=== PATIENT | female | born 1955 | race Caucasian/White ===

== ENCOUNTER → 2016-11-16 | Outpatient (CLI) | payer OTHER ==
[~2016-11-16] MED LIST: ALPR1TAB2 PO; ASPI81TA21 PO; CIPR-255 PO; COEN150C PO; FLUT0.0529; GLCSC500400 PO; LOSA50TA6 PO; MULTTAB PO; OMEG12006 PO; OMEP20CA59 PO; SIMV10TA2 PO; SUMA50TA15 PO; ZNTT/150 PO
[2016-11-16 17:56] LABS: URINE APPEARANCE CLEAR (CLEAR); URINE BILIRUBIN NEG (NEG); URINE COLOR YELLOW; URINE NITRITE NEG (NEG); URINE PH 5.5 (4.5-7.5); URINE SPECIFIC GRAVITY 1.001 (1.000-1.030); UROBILINOGEN NEG (NEG)
[2016-11-16 17:57] LABS: MANUAL MICROSCOPIC REQUIRED? NO; REVIEW REQ? NO
== END | disposition home or self-care (01) ==
LOC: C.LABSPEC 16:57
PROVIDERS: ATTEND Internal Medicine
DX: R30.0 Dysuria (principal)

== ENCOUNTER → 2017-01-08 | Outpatient (CLI) | payer OTHER ==
[2017-01-08 12:07] LABS: BASO % 0.2 %; BASO ABS # 0.01 K/uL (0-0.2); COMPLETE YES; EOS % 3.6 %; HEMATOCRIT 39.7 % (37-47); LYMPH % 46.7 %; LYMPH ABS # 2.75 K/uL (1.2-3.4); MEAN CELL VOLUME 97.8 fL (80-100); MEAN CORPUSCULAR HEMOGLOBIN 33.3 pg (25-34); MEAN PLATELET VOLUME 11.2 fL (7.4-10.4); MONO % 8.7 %; NEUT % 40.8 %; PLATELET COUNT 173 K/uL (130-400); RED BLOOD COUNT 4.06 M/uL (4.2-5.4); WHITE BLOOD COUNT 5.89 K/uL (4.8-10.8)
[2017-01-08 12:31] LABS: ESTIMATED AVERAGE GLUCOSE 105 mg/dl; HA1C FLAG Normal (Normal)
[2017-01-08 13:02] LABS: ALT/SGPT 25 U/L (12-78); AST/SGOT 22 U/L (15-37); BLOOD UREA NITROGEN 20 mg/dl (7-18); BUN/CREATININE RATIO 20.8 (10-20); CALCIUM 8.9 mg/dl (8.5-10.1); CARBON DIOXIDE 27 mmol/L (21-32); CHLORIDE 106 mmol/L (98-107); CREATININE 0.95 mg/dl (0.60-1.20); GLUCOSE 103 mg/dl (70-99); POTASSIUM 3.9 mmol/L (3.5-5.1); SODIUM 142 mmol/L (136-145)
[2017-01-08 13:13] LABS: ALKALINE PHOSPHATASE 100 U/L (45-117); CHOLESTEROL 179 mg/dl (0-200); CHOLESTEROL/HDL RATIO 4.8; HDL CHOLESTEROL 37 mg/dl; LDL CHOLESTEROL CALCULATED 64 mg/dl; TRIGLYCERIDES 389 mg/dl (0-150); VERY LOW DENSITY LIPOPROT CALC 78 mg/dl
== END | disposition home or self-care (01) ==
LOC: C.LABPBG 08:46
PROVIDERS: ATTEND Internal Medicine
DX: R73.09 Other abnormal glucose (principal)

== ENCOUNTER → 2017-03-19 | Outpatient (CLI) | payer OTHER ==
[2017-03-19 12:08] LABS: BASO % 0.2 %; BASO ABS # 0.01 K/uL (0-0.2); COMPLETE YES; EOS % 1.7 %; HEMATOCRIT 38.8 % (37-47); IG% 0.2 %; LYMPH % 29.7 %; LYMPH ABS # 1.53 K/uL (1.2-3.4); MEAN CELL VOLUME 97.2 fL (80-100); MEAN CORPUSCULAR HEMOGLOBIN 33.3 pg (25-34); MEAN CORPUSCULAR HGB CONC 34.3 g/dl (32-36); MEAN PLATELET VOLUME 10.9 fL (7.4-10.4); MONO % 9.3 %; NEUT % 58.9 %; PLATELET COUNT 164 K/uL (130-400); RED BLOOD COUNT 3.99 M/uL (4.2-5.4); WHITE BLOOD COUNT 5.16 K/uL (4.8-10.8)
[2017-03-21 11:52] LABS: EBV EARLY ANTIGEN AB <9.00 U/ML
== END | disposition home or self-care (01) ==
LOC: C.LABPBG 10:39
PROVIDERS: ATTEND Physician Assistant
DX: J02.9 Acute pharyngitis, unspecified (principal)

== ENCOUNTER → 2017-03-29 | Outpatient (CLI) | payer OTHER ==
--- NOTE | 2017-04-01 07:43 | MAMMOGRAPHY REPORT ---
BILATERAL DIGITAL SCREENING MAMMOGRAM WITH CAD: 03/29/2017 CLINICAL HISTORY: Routine screening. Patient has no complaints. TECHNIQUE: Current study was also evaluated with a Computer Aided Detection (CAD) system. Bilateral CC and MLO views were obtained. COMPARISON: Comparison is made to exams dated: 03/08/2008 mammogram, 03/10/2009 mammogram, 03/13/2010 dusty mogram, 03/14/2011 mammogram, 03/18/2012 mammogram, and 03/19/2013 mammogram. BREAST COMPOSITION: There are scattered areas of fibroglandular density in both breasts. FINDINGS: There is a nodular 6 mm asymmetry seen within the left superior breast on the MLO view mid dle depth, possibly projecting along the posterior nipple line on the cc view, which may represent no rmal overlapping fibroglandular tissue although spot compression tomosynthesis views and possible tomi ast ultrasound are recommended for further evaluation. The remainder of both breasts are stable compared to prior exams, without suspicious masses, calcific ations, or areas of architectural distortion noted. IMPRESSION: ACR BI-RADS CATEGORY 0: INCOMPLETE EVALUATION: NEED ADDITIONAL IMAGING EVALUATION Left breast asymmetry, for which additional imaging evaluation is recommended. The patient will be c alled to schedule an appointment. Approximately 10% of breast cancers are not detected with mammography. A negative mammographic report should not delay biopsy if a clinically suggestive mass is present. Zulay Lerner M.D. /:03/29/2017 16:31:27 Claims Support Specialist: Trudi Tamayo, [facility] letter sent: Addl Imaging 0 BI-RADS Code: ACR BI-RADS Category 0: Incomplete Evaluation: Need Additional Imaging Evaluation
== END | disposition home or self-care (01) ==
LOC: C.MAMM 13:42
PROVIDERS: ATTEND Neuromusculoskeletal Medicine & OMM
DX: Z12.31 Encounter for screening mammogram for malignant neoplasm of breast (principal); N64.89 Other specified disorders of breast

== ENCOUNTER → 2017-04-08 | Outpatient (CLI) | payer OTHER ==
--- NOTE | 2017-04-08 16:07 | MAMMOGRAPHY REPORT ---
UNILATERAL LEFT DIGITAL DIAGNOSTIC MAMMOGRAM TOMOSYNTHESIS AND TARGETED LEFT ULTRASOUND: 04/08/2017 CLINICAL HISTORY: 61-year-old woman called back from screening mammography for a 6 m nodular asymmetr y in the middle one third of the left breast, best seen on the MLO view. TECHNIQUE: Spot compression left CC and MLO 2-D and tomosynthesis images were obtained. An addition al spot compression left MLO 2-D view was obtained more superiorly than the first image. COMPARISON: Comparison is made to exams dated: 03/29/2017 mammogram - [facility], mammogram, 03/22/2014 mammogram, 03/22/2014 mammogram, and 03/19/2013 mammogram. BREAST COMPOSITION: There are scattered areas of fibroglandular density in the left breast. FINDINGS: The supplemental spot compression views and tomosynthesis images of the left breast demons trate effacement of the nodular asymmetry on the MLO views, and no corresponding mass or other suspic ious abnormality on the spot compression CC view. There is no focal area of architectural distortion or suspicious microcalcification. Further evaluation with ultrasound was performed. Targeted ultrasound was performed in the medial left breast and also in the 11:00 through 1:00, retro areolar and 5:00 to 7:00 axes. Sonographically normal tissue is seen without a discrete solid or cys tic mass. IMPRESSION: ACR-BI-RADS CATEGORY 3: PROBABLY BENIGN, TARGETED ULTRASOUND ACR-BI-RADS CATEGORY 3: PRO BABLY BENIGN There is effacement of the nodular asymmetry in the middle one third of the left breast, and no suspi cious sonographic correlate identified. Although this asymmetry most likely represented normal overl apping fibroglandular tissue, given the discrete focal nature seen on the 03/29/2017 screening mammog kory, a short interval follow-up left diagnostic mammogram and possible ultrasound is recommended to e nsure stability in 6 months. These results and recommendations were discussed with the patient at the time of the exam. Approximately 10% of breast cancers are not detected with mammography. A negative mammographic report should not delay biopsy if a clinically suggestive mass is present. Sofia Reyes M.D. ay/:04/08/2017 14:35:30 Clip Riveter: Trudi MENENDEZ(Binu)(Any), [facility] letter sent: Follow Up Recommended 3 BI-RADS Code: ACR-BI-RADS Category 3: Probably Benign Ultrasound BI-RADS: ACR-BI-RADS Category 3: Pr obably Benign
== END | disposition home or self-care (01) ==
LOC: C.MAMM 12:41
PROVIDERS: ATTEND Neuromusculoskeletal Medicine & OMM
DX: N64.89 Other specified disorders of breast (principal)

== ENCOUNTER → 2017-05-17 | Outpatient (CLI) | payer OTHER ==
[2017-05-17 12:46] LABS: ALT/SGPT 25 U/L (12-78); AST/SGOT 25 U/L (15-37); BLOOD UREA NITROGEN 10 mg/dl (7-18); BUN/CREATININE RATIO 10.3 (10-20); CALCIUM 8.9 mg/dl (8.5-10.1); CARBON DIOXIDE 30 mmol/L (21-32); CHLORIDE 109 mmol/L (98-107); GLUCOSE 100 mg/dl (70-99); POTASSIUM 4.1 mmol/L (3.5-5.1); SODIUM 142 mmol/L (136-145)
[2017-05-17 12:49] LABS: ALKALINE PHOSPHATASE 74 U/L (45-117); CHOLESTEROL 152 mg/dl (0-200); CHOLESTEROL/HDL RATIO 3.1; HDL CHOLESTEROL 49 mg/dl; LDL CHOLESTEROL CALCULATED 72 mg/dl; TRIGLYCERIDES 157 mg/dl (0-150); VERY LOW DENSITY LIPOPROT CALC 31 mg/dl
== END | disposition home or self-care (01) ==
LOC: C.LABPBG 09:13
PROVIDERS: ATTEND Neuromusculoskeletal Medicine & OMM
DX: E78.5 Hyperlipidemia, unspecified (principal)

== ENCOUNTER → 2017-09-27 | Outpatient (CLI) | payer OTHER | END | disposition home or self-care (01) | LOC: C.LABSPEC 15:37 | PROVIDERS: ATTEND Family Medicine | DX: R10.9 Unspecified abdominal pain (principal) ==

== ENCOUNTER 2017-10-15 18:38 | Emergency (ER) | payer OTHER ==
[~2017-10-15] VITALS: Ht 154.9 cm; Wt 62.5 kg
[~2017-10-15 18:38] MED LIST changes: +RANI150T85 PO; -ZNTT/150 PO
[2017-10-15 18:45] VITALS: TEMP 37; Ht 154.9 cm; Wt 62.5 kg
[2017-10-15] MEDS ORDERED: DiphenhydrAMINE HCL 50 MG/ML VIAL IV STA (18:51)
[2017-10-15] MEDS ORDERED: METOCLOPRAMIDE HCL INJ 5 MG/ML 2 ML VIAL IV STA (18:51)
[2017-10-15] MEDS ORDERED: SODIUM CHLORIDE 0.9% 1000ML 2,000 ML IV STA (18:51)
--- NOTE | 2017-10-15 19:10 | EMERGENCY ROOM VISIT NOTE ---
History Report prepared by Kalpana: Gianni Boo Under the Supervision of: Dr. Gilberto Goss M.D. First contact with patient: 18:48 Chief Complaint: DIZZY Stated Complaint: DIZZY DISCOMFORT IN CHEST HEADACHE BP IS UP History of Present Illness The patient is a 62 year old female who presents to the Emergency Room with complaints of intermittent stabbing chest pain that began today. She rates her pain a 3/10 in severity. She has a past medical history of fibromyalgia, hypertension, and hyperlipidemia. She states these episodes of chest pain last for only a couple seconds with associated dizziness, but have been occurring frequently since they began. Currently, the patient is not experiencing any chest pain. She notes that for the past two weeks, she has been experiencing a headache. She has a past history of migraines, but they have been under control until this headache began. She normally can control them with Tylenol. She notes that she does not normally become dizzy with her headaches. One week ago, the patient was diagnosed with a sinus infection and was placed on Augmentin. She had two days of diarrhea, but then her cold-like symptoms resolved. She denies any shortness of breath, nausea, vomiting, diarrhea, or abnormal urinary symptoms. She notes that she stopped taking her Triptan anymore because she keeps forgetting to fill the prescription. She denies any smoking and cancer history. She has a family history of heart disease. Source of History: patient Onset: today Position: chest (left) Symptom Intensity: 3/10 Quality: stabbing Timing: intermittent Associated Symptoms: + headache, No SOB, No nausea, No vomiting, No diarrhea , No urinary symptoms Note: She is intermittently dizzy when her chest pain is present. Review of Systems See HPI for pertinent positives and negatives. A total of ten systems were reviewed and were otherwise negative. Past Medical & Surgical Medical Problems: (1) Diverticulitis (2) Fibromyalgia (3) Hypertension Surgical Problems: (1) S/P appendectomy (2) S/P hysterectomy Family History Heart disease Social History Smoking Status: Never Smoker Smokeless Tobacco Use: No Alcohol Use: occasionally Marital Status: Occupation Status: unemployed Current/Historical Medications Scheduled Alprazolam (Xanax), 0.5 TABLET PO Q8HR PRN Aspirin Enteric Coated (Ecotrin Or Generic), 81 MG PO DAILY Ciprofloxacin Hcl (Cipro), 500 MG PO BID Coenzyme Q10 (Ubidecarenone) (Co Q-10), 200 MG PO DAILY Fluticasone Propionate (Nasal) (Flonase), 2 SPRAYS NA DAILY Glucosamine-Chondroitin (Glucosamine/Chondroitin), 1 TAB PO DAILY Losartan Potassium (Cozaar), 25 MG PO DAILY Multivitamins/Minerals (Mvi With Minerals), 1 TAB PO DAILY Lowes-3 Fatty Acids (Lowes 3), 115.3 MG PO DAILY Omeprazole (Prilosec), 20 MG PO DAILY Ranitidine (Zantac), 150 MG PO HS Simvastatin (Zocor), 10 MG PO QPM Sumatriptan Succinate (Imitrex), 50 MG PO PRN Allergies Coded Allergies: Acetaminophen (Verified Allergy, Severe, RAPID HEART BEAT, DYSPNEA, ) Azithromycin (Verified Allergy, Severe, loss of hearing, sob, 10/15/17) Cefuroxime (Verified Allergy, Severe, SHAKY, DIZZY, 10/15/17) Cortisone (Verified Allergy, Severe, SOB, FACE FLUSHED, 10/15/17) Fexofenadine (Verified Allergy, Severe, RAPID HEART RATE, 10/15/17) Gabapentin (Verified Allergy, Severe, IRREGULAR HEART RATE, 10/15/17) Hydrocodone (Verified Allergy, Severe, ITCHY, PALPITATIONS, 10/15/17) Oxycodone (Verified Allergy, Severe, RAPID HEART BEAT, DYSPNEA, 10/15/17) Pseudoephedrine (Verified Allergy, Severe, RACING HEART, 10/15/17) Tramadol (Verified Allergy, Severe, RAPID HEART RATE, 10/15/17) Carisoprodol (Verified Allergy, Intermediate, ITCHY, 10/15/17) Latex (Verified Allergy, Intermediate, ITCHY RASH, 10/15/17) Acetate (Verified Allergy, Unknown, UNKNOWN, 10/15/17) Morphine (Verified Allergy, Unknown, UNKNOWN, 10/15/17) Uncoded Allergies: GAGAPENTIN (Allergy, Severe, IRR HR, 03/05/13) LOFIBRA (Allergy, Severe, HIVES, 03/05/13) ZERTEC (Allergy, Severe, RACING HEART, 03/05/13) Physical Exam Vital Signs Date Time Temp Pulse Resp B/P (MAP) Pulse Ox O2 Delivery O2 Flow Rate FiO2 10/15/17 21:03 64 16 124/73 98 10/15/17 19:24 98 Room Air 10/15/17 19:20 66 10/15/17 18:45 37.0 76 18 165/85 98 Room Air Physical Exam GENERAL: Awake, alert, well-appearing, in no distress HENT: Normocephalic, atraumatic. Oropharynx reveals dry mucous membranes. Otherwise unremarkable. EYES: Normal conjunctiva. Sclera non-icteric. NECK: Supple. No nuchal rigidity. FROM. No JVD. RESPIRATORY: Clear to auscultation. CARDIAC: Regular rate, normal rhythm. Extremities warm and well perfused. Pulses equal. ABDOMEN: Soft, non-distended. No tenderness to palpation. No rebound or guarding. No masses. RECTAL: Deferred. MUSCULOSKELETAL: Chest examination reveals no tenderness. The back is symmetrical on inspection without obvious abnormality. There is no CVA tenderness to palpation. No joint edema. LOWER EXTREMITIES: Calves are equal size bilaterally and non-tender. No edema. No discoloration. NEURO: Normal sensorium. No sensory or motor deficits noted. Normal cerebellar function with [id number], alternating palms, [id number] SKIN: No rash or jaundice noted. Medical Decision & Procedures ER Provider Diagnostic Interpretation: X-ray: Per my interpretation, radiologist review. CHEST ONE VIEW PORTABLE CLINICAL HISTORY: 62 years-old Female presenting with CHEST PAIN. TECHNIQUE: Portable upright AP view of the chest was obtained. COMPARISON: 03/05/2013. FINDINGS: Cardiomediastinal silhouette normal. Lungs and pleural spaces clear. Osseous structures normal. Upper abdomen normal. IMPRESSION: 1. No acute cardiopulmonary disease. Electronically signed by: Uziel Torres M.D. 10/15/2017 7:15 PM Dictated Date/Time: 10/15/2017 7:15 PM Laboratory Results 10/15/17 19:20 Red Blood Count 3.97, Mean Corpuscular Volume 95.0, Mean Corpuscular Hemoglobin 34.0, Mean Corpuscular Hemoglobin Concent 35.8, Mean Platelet Volume 10.5, Neutrophils (%) (Auto) 52.3, Lymphocytes (%) (Auto) 36.8, Monocytes (%) (Auto) 9.2, Eosinophils (%) (Auto) 1.1, Basophils (%) (Auto) 0.4, Neutrophils # (Auto) 2.96, Lymphocytes # (Auto) 2.08, Monocytes # (Auto) 0.52, Eosinophils # (Auto) 0.06, Basophils # (Auto) 0.02 10/15/17 19:20 Test 10/15/17 19:20 White Blood Count 5.65 K/uL (4.8-10.8) Red Blood Count 3.97 M/uL (4.2-5.4) Hemoglobin 13.5 g/dL (12.0-16.0) Hematocrit 37.7 % (37-47) Mean Corpuscular Volume 95.0 fL (80-100) Mean Corpuscular Hemoglobin 34.0 pg (25-34) Mean Corpuscular Hemoglobin Concent 35.8 g/dl (32-36) Platelet Count 162 K/uL (130-400) Mean Platelet Volume 10.5 fL (7.4-10.4) Neutrophils (%) (Auto) 52.3 % Lymphocytes (%) (Auto) 36.8 % Monocytes (%) (Auto) 9.2 % Eosinophils (%) (Auto) 1.1 % Basophils (%) (Auto) 0.4 % Neutrophils # (Auto) 2.96 K/uL (1.4-6.5) Lymphocytes # (Auto) 2.08 K/uL (1.2-3.4) Monocytes # (Auto) 0.52 K/uL (0.11-0.59) Eosinophils # (Auto) 0.06 K/uL (0-0.5) Basophils # (Auto) 0.02 K/uL (0-0.2) RDW Standard Deviation 45.1 fL (36.4-46.3) RDW Coefficient of Variation 13.0 % (11.5-14.5) Immature Granulocyte % (Auto) 0.2 % Immature Granulocyte # (Auto) 0.01 K/uL (0.00-0.02) Anion Gap 8.0 mmol/L (3-11) Est Creatinine Clear Calc Drug Dose 52.0 ml/min Estimated GFR () 74.4 Estimated GFR (Non- 64.2 BUN/Creatinine Ratio 15.0 (10-20) Calcium Level 8.9 mg/dl (8.5-10.1) Total Bilirubin 0.4 mg/dl (0.2-1) Direct Bilirubin 0.1 mg/dl (0-0.2) Aspartate Amino Transf (AST/SGOT) 20 U/L (15-37) Alanine Aminotransferase (ALT/SGPT) 24 U/L (12-78) Alkaline Phosphatase 86 U/L (45-117) Troponin I < 0.015 ng/ml (0-0.045) Total Protein 7.4 gm/dl (6.4-8.2) Albumin 3.5 gm/dl (3.4-5.0) Lipase 136 U/L (73-393) Laboratory results reviewed by me Medications Administered Medications (Trade) Dose Ordered Sig/Kushal Route Start Time Stop Time Status Last Admin Dose Admin Sodium Chloride 2,000 ml @ 999 mls/hr Q2H1M STAT IV 10/15/17 18:51 10/15/17 20:51 DC 10/15/17 19:32 999 MLS/HR Metoclopramide HCl (Reglan Inj) 10 mg NOW STAT IV 10/15/17 18:51 10/15/17 18:58 DC 10/15/17 19:32 10 MG Diphenhydramine HCl (Benadryl Inj) 25 mg NOW STAT IV 10/15/17 18:51 10/15/17 18:58 DC 10/15/17 19:32 25 MG ECG Indication: chest pain Rate (beats per minute): 62 Rhythm: normal sinus Findings: no acute ischemic change, other (Normal axis) Change: Patient's electrocardiogram interpreted by me. ED Course 1847: The patient was evaluated in room B4B. A complete history and physical exam was performed. 1850: Ordered Diphenhydramine HCl 25mg IV, Metoclopramide HCl 10 mg IV, Sodium Chloride 2000 ml @ 999 mls/hr IV 2023: I reevaluated the patient. Discussed results and discharge instructions: she verbalized understanding and agreement. The patient is ready for discharge. Medical Decision I reviewed the patient's past medical history, medications, and the nursing notes as described above. Differential diagnosis: Etiologies such as cardiac ischemia, aortic dissection, pulmonary embolism, pneumonia, pneumothorax, musculoskeletal, infections, pericarditis, myocarditis , esophageal rupture, gastrointestinal, migraine headache, meningitis, sinusitis , CO exposure, ICH, SAH, infection, tumor, headache, sinus thrombosis, arterial dissection, as well as others were entertained. The patient is a 62-year-old woman with a past medical history of hypertension, hyperlipidemia, migraines, fibromyalgia who presents emergency Department with 2 weeks of constant headache similar to her prior migraines setting of having flulike symptoms which are now improved after course of Augmentin but now experiencing intermittent stabbing pain in her chest today with associated dizziness per hpi. On arrival the patient is relatively well-appearing, no acute distress, afebrile stable vital signs. She is neuro intact. EKG unremarkable no evidence of acute ischemia. Troponin negative greater than 6 hours after onset of symptoms. Heart score 3, low risk, therefore ACS unlikely. No tachycardia or hypoxia making PE unlikely. Patient's headache resolved after migraine cocktail and IV fluid hydration. No chest pain while here in the emergency department. The symptoms most likely related to mild dehydration in the setting of the patient having flulike symptoms 2 weeks ago. Plan for PCP follow-up. Findings and plan for follow-up reviewed with patient. Patient agreeable and d/c'd per discharge instructions. Medication Reconcilliation Current Medication List: was personally reviewed by me Blood Pressure Screening Patient's blood pressure: Elevated blood pressure Blood pressure disposition: Referred to PCP Impression Primary Impression: Substernal chest pain Additional Impressions: Migraine Dehydration Scribe Attestation The scribe's documentation has been prepared under my direction and personally reviewed by me in its entirety. I confirm that the note above accurately reflects all work, treatment, procedures, and medical decision making performed by me. Departure Information Dispostion Home / Self-Care Referrals Karen Schwartz DO (PCP) Forms HOME CARE DOCUMENTATION FORM, IMPORTANT VISIT INFORMATION Patient Instructions ED Chest Pain Atypical Unkn Cause, ED Dehydration, ED Headache Migraine, My [facility] Additional Instructions Please follow up with your primary care physician in the next 1-3 days for re- evaluation. The cause of your symptoms may be related to your recent flulike illness causing mild dehydration. Otherwise, your exam, EKG, chest xray, and lab results did not show signs of an emergent condition at this time. Acetaminophen or ibuprofen for pain and fevers as needed. Drink plenty of fluids to ensure hydration. Return to the emergency department for worsening symptoms as described in the accompanying instructions. Problem Qualifiers
--- NOTE | 2017-10-15 19:17 | DIAGNOSTIC IMAGING REPORT ---
CHEST ONE VIEW PORTABLE CLINICAL HISTORY: 62 years-old Female presenting with CHEST PAIN. TECHNIQUE: Portable upright AP view of the chest was obtained. COMPARISON: 03/05/2013. FINDINGS: Cardiomediastinal silhouette normal. Lungs and pleural spaces clear. Osseous structures normal. Upper abdomen normal. IMPRESSION: 1. No acute cardiopulmonary disease. Electronically signed by: Uziel Torres M.D. 10/15/2017 7:15 PM Dictated Date/Time: 10/15/2017 7:15 PM
[2017-10-15 19:24] VITALS: O2SAT 98
[2017-10-15 19:29] LABS: BASO % 0.4 %; BASO ABS # 0.02 K/uL (0-0.2); EOS % 1.1 %; EOS ABS # 0.06 K/uL (0-0.5); HEMATOCRIT 37.7 % (37-47); HEMOGLOBIN 13.5 g/dL (12.0-16.0); IG# 0.01 K/uL (0.00-0.02); LYMPH % 36.8 %; LYMPH ABS # 2.08 K/uL (1.2-3.4); MEAN CORPUSCULAR HGB CONC 35.8 g/dl (32-36); MEAN PLATELET VOLUME 10.5 fL (7.4-10.4); MONO % 9.2 %; MONO ABS # 0.52 K/uL (0.11-0.59); NEUT % 52.3 %; NEUT ABS # 2.96 K/uL (1.4-6.5); PLATELET COUNT 162 K/uL (130-400); RED CELL DISTRIBUTION WIDTH SD 45.1 fL (36.4-46.3); WHITE BLOOD COUNT 5.65 K/uL (4.8-10.8)
[2017-10-15 19:56] LABS: ALBUMIN 3.5 gm/dl (3.4-5.0); ALT/SGPT 24 U/L (12-78); AST/SGOT 20 U/L (15-37); BLOOD UREA NITROGEN 14 mg/dl (7-18); CALCIUM 8.9 mg/dl (8.5-10.1); CARBON DIOXIDE 25 mmol/L (21-32); CREATININE 0.95 mg/dl (0.60-1.20); GLUCOSE 104 mg/dl (70-99); LIPASE 136 U/L (73-393); POTASSIUM 3.5 mmol/L (3.5-5.1); SODIUM 139 mmol/L (136-145)
[2017-10-15 20:01] LABS: ALKALINE PHOSPHATASE 86 U/L (45-117); TOTAL PROTEIN 7.4 gm/dl (6.4-8.2)
[2017-10-15 21:03] VITALS: BP 124/73; PULSE 64; O2SAT 98
== END 2017-10-15 21:04 | disposition home or self-care (01) ==
LOC: C.EDB 18:42
DX: R07.2 Precordial pain (principal); G43.909 Migraine, unspecified, not intractable, without status migrainosus; E86.0 Dehydration; M79.7 Fibromyalgia; I10 Essential (primary) hypertension; E78.5 Hyperlipidemia, unspecified; Z90.710 Acquired absence of both cervix and uterus; Z79.82 Long term (current) use of aspirin; Z79.899 Other long term (current) drug therapy

== ENCOUNTER → 2017-10-16 | Outpatient (CLI) | payer OTHER ==
[~2017-10-16] MED LIST changes: +ASPI-319 PO; -ASPI81TA21 PO
--- NOTE | 2017-10-16 15:24 | MAMMOGRAPHY REPORT ---
UNILATERAL LEFT DIGITAL DIAGNOSTIC MAMMOGRAM TOMOSYNTHESIS WITH CAD: 10/16/2017 CLINICAL HISTORY: 68-year-old woman presents for follow-up in the left breast for a probably benign n odular asymmetry initially seen in the middle one third of the breast along the posterior nipple line on the MLO view. This asymmetry effaced with supplemental mammographic views and no suspicious sono graphic correlate was seen. TECHNIQUE: Left breast tomosynthesis in addition to standard 2D mammography was performed. Current st udy was also evaluated with a Computer Aided Detection (CAD) system. COMPARISON: Comparison is made to exams dated: 04/08/2017 ultrasound, 04/08/2017 mammogram, 03/29/2017 ma mmogram - [facility], 03/24/2015 mammogram, 03/22/2014 mammogram, and 03/22/2014 mammo gram. BREAST COMPOSITION: There are scattered areas of fibroglandular density in the left breast. FINDINGS: The current views of the left breast no longer demonstrate a 6 mm nodular asymmetry in the middle one third of the left breast on the MLO view. This confirms the suspected normal overlapping tissue and is benign. Currently, no suspicious mass, architectural distortion, asymmetry or cluster of microcalcifications is seen. Recommend return to annual screening mammography schedule, due in 2017. IMPRESSION: ACR BI-RADS CATEGORY 2: BENIGN The left breast asymmetry is no longer seen, confirming benignity. There is no mammographic evidence of malignancy. Return to annual mammogram screening schedule is recommended, due in March 2018. The patient has been verbally notified of the results. Approximately 10% of breast cancers are not detected with mammography. A negative mammographic report should not delay biopsy if a clinically suggestive mass is present. Sofia Reyes M.D. ay/:10/16/2017 13:12:58 Geophysical Engineer: Trang LESTER)(Any), [facility] letter sent: Normal 1/2 BI-RADS Code: ACR BI-RADS Category 2: Benign
== END | disposition home or self-care (01) ==
LOC: C.MAMM 12:29
PROVIDERS: ATTEND Neuromusculoskeletal Medicine & OMM
DX: R92.8 Other abnormal and inconclusive findings on diagnostic imaging of breast (principal)

== ENCOUNTER → 2017-11-14 | Outpatient (CLI) | payer OTHER ==
[~2017-11-14] MED LIST changes: -ASPI-319 PO; +ASPI81TA21 PO
[2017-11-14 13:01] LABS: ALBUMIN 3.7 gm/dl (3.4-5.0); ALT/SGPT 25 U/L (12-78); AST/SGOT 18 U/L (15-37); BLOOD UREA NITROGEN 17 mg/dl (7-18); CALCIUM 9.1 mg/dl (8.5-10.1); CARBON DIOXIDE 28 mmol/L (21-32); CREATININE 1.07 mg/dl (0.60-1.20); GLUCOSE 101 mg/dl (70-99); POTASSIUM 3.9 mmol/L (3.5-5.1); SODIUM 139 mmol/L (136-145)
[2017-11-14 13:03] LABS: ALKALINE PHOSPHATASE 91 U/L (45-117); CHOLESTEROL 179 mg/dl (0-200); LDL CHOLESTEROL CALCULATED 86 mg/dl; TOTAL PROTEIN 7.6 gm/dl (6.4-8.2)
== END | disposition home or self-care (01) ==
LOC: C.LABPBG 09:51
PROVIDERS: ATTEND Family Medicine
DX: Z11.59 Encounter for screening for other viral diseases (principal); I10 Essential (primary) hypertension; E78.5 Hyperlipidemia, unspecified